=== PATIENT | male | born 2000 | race Caucasian/White ===

== ENCOUNTER → 2021-09-29 | Day surgery (SDC) | payer OTHER ==
[~2021-09-29] VITALS: Ht 175.3 cm; Wt 79.4 kg
== END | disposition home or self-care (01) ==
LOC: FAS 11:00
DX: S83.512A Sprain of anterior cruciate ligament of left knee, initial encounter (principal); X58.XXXA Exposure to other specified factors, initial encounter; Z88.0 Allergy status to penicillin
CPT/HCPCS: J1100; J1170; J2250; J2405; J2704; J2795; J7120